=== PATIENT | female | born 1965 | race Caucasian/White ===

== ENCOUNTER → 2017-09-29 | Outpatient (CLI) | payer BC ==
[~2017-09-29] MED LIST: ADDERALL20 MG PO; MIDOL COMPLETE1 EACH PO
== END | disposition home or self-care (01) ==
LOC: CDC 10:31
DX: Z01.810 Encounter for preprocedural cardiovascular examination (principal); M48.02 Spinal stenosis, cervical region; G95.9 Disease of spinal cord, unspecified
CPT/HCPCS: 93000